=== PATIENT | female | born 1995 | race Caucasian/White ===

== ENCOUNTER 2022-05-25 20:39 | Emergency (ER) | payer MEDICAID ==
[~2022-05-25] VITALS: Ht 152.4 cm; Wt 63.5 kg
[2022-05-25 20:47] VITALS: BP 109/69
--- NOTE | 2022-05-25 20:54 | NUR ---
TO LOBBY FOLLOWING TRIAGE, AFTER OBTAINING UA
--- NOTE | 2022-05-25 22:00 | NUR ---
PT TAKEN TO BED 5
--- NOTE | 2022-05-25 22:02 | NUR ---
Dr. Wilkerson examining patient.
[2022-05-25] MEDS ORDERED: NACL 0.9% 1,000 ML IV ONE (22:05)
[2022-05-25 22:33] LABS: BASOPHILS % (AUTO) 0.5 % (0.0-2.0); EOSINOPHILS # (AUTO) 0.2 K/uL (0-0.4); EOSINOPHILS % (AUTO) 2.3 % (0.0-4.0); HEMATOCRIT 38.9 % (36-48); HEMOGLOBIN 13.3 g/dL (12.0-16.0); LYMPHOCYTES # (AUTO) 1.4 K/uL (2.5-16.5); LYMPHOCYTES % (AUTO) 19.2 % (20.5-51.1); MEAN CORPUSCULAR HEMOGLOBIN 31 pg (27-31); MEAN CORPUSCULAR HGB CONC 34 g/dL (33-37); MEAN CORPUSCULAR VOLUME 89.8 fL (80-94); MONOCYTES # (AUTO) 0.8 K/uL (0.8-1.0); MONOCYTES % (AUTO) 10.9 % (1.7-9.3); NEUTROPHILS % (AUTO) 67.1 % (42.2-75.2); PLATELET COUNT (AUTO) 310 K/uL (140-450); RED BLOOD CELL COUNT(AUTO) 4.34 MIL/uL (4.20-5.40); RED CELL DISTRIBUTION WIDTH 14.3 % (11.6-13.7); WHITE BLOOD COUNT (AUTO) 7.4 K/uL (4.8-10.8)
--- NOTE | 2022-05-25 22:48 | NUR ---
PT RETURN FROM RADIOLOGY
[2022-05-25 22:51] LABS: ALBUMIN 3.5 g/dL (3.4-5.0); ANION GAP 10.8 (8-16); CARBON DIOXIDE 28.6 mmol/L (21-32); CREATININE 0.7 mg/dL (0.6-1.3); POTASSIUM 3.4 mmol/L (3.5-5.1); TOTAL BILIRUBIN 2.3 mg/dL (0.0-1.0)
--- NOTE | 2022-05-25 22:52 | NUR ---
PT TO CT
--- NOTE | 2022-05-26 01:15 | NUR ---
PT IS RESTING WITH HOB DOWN. PT IS PAIN FREE . PENDING ULTRASOUND. DR NOONAN SPOKE TO PT REGARDING ELEVATED LIVER ENZYMES AND LIPASE. 22G IV CATH IN L AC. PT IS A&OX4. SKIN INTACT WARM AND DRY. BED AT LOWEST POSITION. NKDA NO MED HX
--- NOTE | 2022-05-26 02:22 | NUR ---
Ultrasound at bedside.
--- NOTE | 2022-05-26 02:50 | NUR ---
Dr. Wilkerson examining patient.
[2022-05-26 03:20] VITALS: BP 112/69
--- NOTE | 2022-05-26 03:20 | NUR ---
Patient discharged with v/s stable. Written and verbal after care instructions given and explained. Patient verbalized understanding. Ambulatory with steady gait. All questions addressed prior to discharge. Advised to follow up with PMD.
--- NOTE | 2022-05-26 03:21 | NUR ---
The patient's care was reviewed and supervised by Elvie Sexton RN.
== END 2022-05-26 03:20 | disposition home or self-care (01) ==
LOC: MED 20:39
DX: K85.90 Acute pancreatitis without necrosis or infection, unspecified (principal); R74.01 Elevation of levels of liver transaminase levels
CPT/HCPCS: 36415; 74176; 76705; 80053; 81025; 83605; 83690; 85025; 96360; 96361; 99284; Q0092; J7030